=== PATIENT | male | born 1955 | race Caucasian/White ===

== ENCOUNTER 2022-02-11 08:41 | Emergency (ER) | payer OTHER ==
[~2022-02-11] VITALS: Ht 180.3 cm; Wt 96.4 kg
[2022-02-11 08:48] VITALS: BP 150/97
[2022-02-11] MEDS ORDERED: ipratropium/albuterol 3ml nebule NEB ONE (11:35)
[2022-02-11] MEDS ORDERED: PRED20TA PO (11:53)
[2022-02-11] MEDS ORDERED: AMOX-117 PO (11:53)
== END 2022-02-11 22:18 | disposition home or self-care (01) ==
LOC: ER 08:43
DX: J20.9 Acute bronchitis, unspecified (principal); Z20.822 Contact with and (suspected) exposure to COVID-19; J45.901 Unspecified asthma with (acute) exacerbation; Z87.891 Personal history of nicotine dependence; Z72.89 Other problems related to lifestyle; Z88.8 Allergy status to other drugs, medicaments and biological substances; Z79.2 Long term (current) use of antibiotics; Z79.899 Other long term (current) drug therapy
CPT/HCPCS: 71045; 87502; 87503; 87635; 94640; 99284; C9803; 94760

== ENCOUNTER 2023-06-11 08:04 | Outpatient (CLI) | payer MEDICARE | END 2023-06-11 23:59 | disposition home or self-care (01) | LOC: RT 08:04 | PROVIDERS: ATTEND Physician Assistant | DX: J44.9 Chronic obstructive pulmonary disease, unspecified (principal); J43.9 Emphysema, unspecified | CPT/HCPCS: 94010; 94729 ==

== ENCOUNTER 2024-08-03 08:38 | Outpatient (CLI) | payer MEDICARE ==
[2024-08-03 09:40] VITALS: PULSE 83; RESP 16; O2SAT 91
--- NOTE | 2024-08-04 15:06 | PROCEDURE NOTE - Respiratory ---
Procedure Note-Respiratory Providers to Copies To 1: GORDY BOYLE PA-C Procedure Name: This is a complete pulmonary function study dated August 03, 2024. Spirometry measurements: The forced vital capacity is in the lower range of normal. The FEV1 is severely reduced. The FEV1 ratio is also severely reduced. All of the measured flow rates are extremely poor. Bronchodilator was not administered as part of the study. Lung volume measurements: The total lung capacity is normal. There is slight elevation of the residual volume and functional residual capacity measurements. This suggests a slight degree of air trapping within the lungs. Lung diffusion measurement: The DLCO measurement is substantially reduced. This indicates abnormal gas transfer abilities of the lung. Airway resistance measurement: The airway resistance is elevated. Overall conclusion: This study shows severe abnormality. There is evidence for severe obstructive ventilatory defect. The patient shows evidence of air trapping within the lungs. The lung diffusion capacity is substantially reduced. 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 Continued use of bronchodilator medication is recommended. There is no evidence for restrictive ventilatory defect. There is a previous study for comparison dated approximately one year earlier. Over the past one year the forced vital capacity and the DLCO measurements are essentially stable. The FEV1 measurement shows slight improvement over the past one year. Close pulmonary follow-up is recommended for this patient with severe pulmonary limitation. NATHAN DARNELL MD Aug 04, 2024 15:06
== END 2024-08-03 23:59 | disposition home or self-care (01) ==
LOC: RT 08:38
PROVIDERS: ATTEND Physician Assistant
DX: J44.9 Chronic obstructive pulmonary disease, unspecified (principal); R06.09 Other forms of dyspnea; Z87.891 Personal history of nicotine dependence
CPT/HCPCS: 94010; 94727; 94729; 94760